=== PATIENT | female | born 1975 | race American Indian/Alaskan Native ===

== ENCOUNTER 2016-09-10 02:43 | Emergency (ER) | payer BC ==
[2016-09-10 03:33] LABS: BUN/Creatinine Ratio 16.66; Blood Urea Nitrogen 10 mg/dL (7-17); Carbon Dioxide 23 mmol/L (22-30); Chloride 104.3 mmol/L (98-107); Glucose 148 mg/dL (65-100); Potassium 4.2 mmol/L (3.6-5.0); Sodium 141 mmol/L (137-145)
[2016-09-10 04:11] LABS: Anion Gap 18 mmol/L
[2016-09-10 04:13] LABS: Basophils % (Auto) 0.7 % (0.0-1.8); Hematocrit 38.1 % (30.3-42.9); Hemoglobin 12.6 gm/dl (10.1-14.3); Mean Corpuscular HGB Conc 33 % (30-34); Mean Corpuscular Hemoglobin 27 pg (28-32); Mean Corpuscular Volume 83 fl (79-97); Platelet Count 336 K/mm3 (140-440); Red Cell Distribution Width 13.8 % (13.2-15.2); White Blood Count 10.5 K/mm3 (4.5-11.0)
[2016-09-10 08:50] VITALS: BP 136/78
--- NOTE | 2016-09-11 13:56 | ED Elopement Review ---
ED Pt Elopement review - Results review Lab results: Laboratory Tests 09/10/16 09/10/16 09/10/16 03:09 03:09 06:32 WBC 10.5 RBC 4.60 Hgb 12.6 Hct 38.1 MCV 83 MCH 27 L MCHC 33 RDW 13.8 Plt Count 336 Lymph % (Auto) 19.5 [place] % (Auto) 5.9 Eos % (Auto) 1.0 Baso % (Auto) 0.7 Lymph # 2.0 [place] # 0.6 Eos # 0.1 Baso # 0.1 Seg Neutrophils % 72.9 H Seg Neutrophils # 7.6 Sodium 141 Potassium 4.2 Chloride 104.3 Carbon Dioxide 23 Anion Gap 18 BUN 10 Creatinine 0.6 L Estimated GFR > 60 BUN/Creatinine Ratio 16.66 Glucose 148 H Calcium 9.0 Troponin T < 0.010 < 0.010 09/10/16 09:14 WBC RBC Hgb Hct MCV MCH MCHC RDW Plt Count Lymph % (Auto) [place] % (Auto) Eos % (Auto) Baso % (Auto) Lymph # [place] # Eos # Baso # Seg Neutrophils % Seg Neutrophils # Sodium Potassium Chloride Carbon Dioxide Anion Gap BUN Creatinine Estimated GFR BUN/Creatinine Ratio Glucose Calcium Troponin T < 0.010 - Call Back decision Pt Call Back Decision: Call pt to return to ED [facility] (ABN EKG)
== END 2016-09-10 17:50 | disposition left against medical advice (07) ==
LOC: ED 02:43
DX: R07.89 Other chest pain (principal); Z53.21 Procedure and treatment not carried out due to patient leaving prior to being seen by health care provider
CPT/HCPCS: 36415; 80048; 84484; 85025; 93005; 93010